=== PATIENT | male | born 1960 | race African-American/Black ===

== ENCOUNTER → 2016-08-08 | Outpatient (REF) | payer BC | LOC: M SFHCLERA 08:38 | PROVIDERS: ATTEND Family Medicine | DX: R73.03 Prediabetes (principal); R97.20 Elevated prostate specific antigen [PSA]; I10 Essential (primary) hypertension ==

== ENCOUNTER → 2016-08-26 | Outpatient (REF) | payer BC ==
[2016-08-26 11:15] LABS: MEAN CORPUSCULAR HGB CONC 31.4 g/dl (32.0-36.5); MEAN CORPUSCULAR VOLUME 89.3 fl (80.0-96.0); RED CELL DISTRIBUTION WIDTH 13.9 % (11.5-14.5); WHITE BLOOD COUNT 4.3 K/mm3 (4.0-10.0)
[2016-08-26 11:35] LABS: ANION GAP 7 MEQ/L (8-16); BLOOD UREA NITROGEN 17 MG/DL (7-18); CALCIUM LEVEL 8.8 MG/DL (8.5-10.1); CARBON DIOXIDE LEVEL 30 MEQ/L (21-32); CHLORIDE LEVEL 106 MEQ/L (98-107); GLOMERULAR FILTRATION RATE > 60.0 (>56); GLUCOSE, FASTING 95 MG/DL (70-105); POTASSIUM SERUM 4.2 MEQ/L (3.5-5.1); SODIUM LEVEL 143 MEQ/L (136-145)
== END ==
LOC: M SFHCLERA 09:52
PROVIDERS: ATTEND Family Medicine
DX: R73.03 Prediabetes (principal); R97.20 Elevated prostate specific antigen [PSA]; I10 Essential (primary) hypertension